=== PATIENT | female | born 1965 | race Hispanic/Latino ===

== ENCOUNTER 2024-03-08 19:10 | Emergency (ER) | payer OTHER ==
[~2024-03-08] VITALS: Ht 162.6 cm; Wt 101.0 kg
[2024-03-08] MEDS ORDERED: ACETAMINOPHEN 500 MG TAB PO ONE (20:15)
[2024-03-08 20:26] LABS: BASOPHILS 0.2 % (0-2); EOSINOPHILS 0.4 % (0-6); HEMATOCRIT 43.4 % (35.0-50.0); HEMOGLOBIN 14.5 g/dL (12.0-18.0); LYMPHOCYTES 26.6 % (24-44); MCH 29.4 (27-36); MCHC 33.4 g/dl (30-36); MCV 88.2 fl (81-99); MONOCYTES 12.5 % (0-12); NEUTROPHILS 60.3 % (39-80); PLATELET COUNT 231 K/uL (140-440); RBC 4.92 M/ul (4.3-5.7); RDW 12.8 (10.5-15.0)
[2024-03-08] MEDS ORDERED: ondansetron HCL 4 MG/2 ML VIAL IV ONE (20:30)
[2024-03-08] MEDS ORDERED: LACTATED RINGER'S 1,000 ML IV ONE (20:30)
[2024-03-08 20:47] LABS: ALBUMIN 3.6 g/dL (3.4-5.0); ALBUMIN/GLOBULIN RATIO 0.75 (1.1-2.4); ANION GAP 13.4 (7-21); BILIRUBIN, TOTAL 0.8 ng/dL (0.2-1.0); BUN/CREATININE RATIO 10.58 (6.0-28.6); CALCIUM 9.4 mg/dL (8.5-10.1); CREATININE, SERUM 0.85 mg/dL (0.55-1.02); POTASSIUM 3.4 mmol/L (3.5-5.1); PROTEIN, TOTAL 8.4 g/dL (6.4-8.2)
[2024-03-08 20:49] LABS: MAGNESIUM 2.1 mg/dL (1.8-2.4)
[2024-03-08 22:35] LABS: BILIRUBIN, URINE NEGATIVE (negative); BLOOD/HGB, URINE TRACE-I (Negative); KETONE, URINE NEGATIVE (Negative); LEUK ESTERASE, URINE NEGATIVE (negative); NITRITE, URINE NEGATIVE (negative); PH, URINE 5.5 (5-7)
[2024-03-08 22:41] LABS: EPITHELIAL CELLS, URINE SQUAMOUS 1+ /lpf (0-1+)
[2024-03-08 22:42] LABS: BACTERIA, URINE 1+ /hpf (negative); CASTS, URINE NONE SEEN \\lpf; COLLECTION TYPE, URINE CLEAN CATCH; CRYSTALS, URINE NONE SEEN (0-1+); REFLEX CULTURE, URINE No (No)
[2024-03-08 23:12] VITALS: BP 122/83
--- NOTE | 2024-03-09 21:34 | EKG ---
[facility] [address] [facility] [place] [address] Signed Sinus tachycardia Otherwise normal ECG No previous ECGs available Confirmed by Noe Jurado MD () on 03/09/2024 9:34:01 PM Electronically Signed By: NOE JURADO MD 03/09/242133 PATIENT NAME: DEBI JAYDONILAM Electrocardiogram DATE OF : 63 PHYSICIAN: NOE JURADO MD REPORT #: [id number] REPORT IS CONFIDENTIAL AND NOT TO BE RELEASED WITHOUT AUTHORIZATION
== END 2024-03-08 23:13 | disposition home or self-care (01) ==
LOC: ED 19:10
PROVIDERS: Internal Medicine
DX: B34.9 Viral infection, unspecified (principal)
CPT/HCPCS: 36415; 71045; 80053; 81001; 82553; 83735; 84484; 85025; 93005; 93010; 96374; 99285-25; A9270; J2405; J7121; U0002